=== PATIENT | female | born 1955 | race Caucasian/White ===

== ENCOUNTER → 2019-12-01 17:36 | Outpatient (BNVA) | payer BC, SELFPAY | PROVIDERS: Family Provider Nurse Practitioner Family; PCP Nurse Practitioner Family; Visit Provider Nurse Practitioner Family | DX: N39.0 Urinary tract infection, site not specified (principal); L98.9 Disorder of the skin and subcutaneous tissue, unspecified; L57.0 Actinic keratosis | CPT/HCPCS: 80053; 81000; 87077; 87086; 87176; 87186 ==

== ENCOUNTER → 2019-12-03 11:41 | Outpatient (BNVA) | payer BC, SELFPAY | PROVIDERS: Family Provider Nurse Practitioner Family; PCP Nurse Practitioner Family; Visit Provider Nurse Practitioner Family | DX: N39.0 Urinary tract infection, site not specified (principal); L98.9 Disorder of the skin and subcutaneous tissue, unspecified; L57.0 Actinic keratosis | CPT/HCPCS: 88305 ==

== ENCOUNTER → 2020-04-29 17:07 | Outpatient (BNVA) | payer BC, SELFPAY | PROVIDERS: Family Provider Nurse Practitioner Family; PCP Nurse Practitioner Family; Visit Provider Emergency Medicine | DX: L03.116 Cellulitis of left lower limb (principal) | CPT/HCPCS: 73590 ==

== ENCOUNTER → 2021-02-10 17:54 | Outpatient (BNVA) | payer OTHER, SELFPAY | PROVIDERS: Family Provider Nurse Practitioner Family; PCP Nurse Practitioner Family; Visit Provider Nurse Practitioner Family | DX: R39.9 Unspecified symptoms and signs involving the genitourinary system (principal) | CPT/HCPCS: 81000 ==

== ENCOUNTER 2021-03-24 19:09 | Outpatient (CLI) | payer OTHER, SELFPAY ==
--- NOTE | 2021-03-24 19:50 | XR_ITS ---
WS: [id number] LEFT RIBS, MULTIPLE VIEWS HISTORY: W19.XXXA - Unspecified fall, initial encounter COMPARISON: None available. Ribs: Nondisplaced anterolateral ninth rib fracture. No additional fractures. Lungs and mediastinum: Minimal subsegmental atelectasis at the LEFT lung a cyst. XR/XR ribs LT 2V* [id number] IMPRESSION: Nondisplaced anterolateral ninth rib fracture.
== END 2021-03-24 19:10 | disposition home or self-care (01) ==
PROVIDERS: PCP Nurse Practitioner Family; Visit Provider Emergency Medicine
DX: W19.XXXA Unspecified fall, initial encounter (principal); R07.81 Pleurodynia
CPT/HCPCS: 71100